=== PATIENT | female | born 1945 | race Caucasian/White ===

== ENCOUNTER 2024-01-24 04:06 | Day surgery (SDC) | payer OTHER ==
[2024-01-20 11:25] VITALS: BMI 32.5
[2024-01-24 11:29] LABS: INR 0.94 (0.83-1.09); PROTHROMBIN TIME (PATIENT) 10.8 SEC (9.7-13.0)
[2024-01-24] MEDS: ceFAZolin SODIUM 1 GM VIAL IVPB ONE (12:47)
[2024-01-24] MEDS ORDERED: HEPARIN NA (PORCINE) 5,000 UNITS/ML 1ML VIAL ONE (13:11)
[2024-01-24] MEDS ORDERED: BUPIVACAINE HCL/PF 0.25% (2.5MG/ML) 10 ML VIAL ONE (13:11)
[2024-01-24] MEDS ORDERED: PROPOFOL 20 ML ONE (14:30)
[2024-01-24] MEDS ORDERED: LIDOCAINE HCL/PF 2% SDV 5ML VIAL ONE (14:30)
[2024-01-24] MEDS ORDERED: SUCCINYLCHOLINE CHLORIDE 200 MG/10 ML SYRINGE ONE (14:30)
[2024-01-24] MEDS ORDERED: MIDAZOLAM HCL 2 MG/2 ML SINGLE DOSE VIAL ONE (14:31)
[2024-01-24] MEDS ORDERED: ROCURONIUM BROMIDE 50 MG/5 ML SYRINGE ONE (14:31)
[2024-01-24] MEDS ORDERED: DEXAMETHASONE SOD PHOSPHATE 4 MG/1 ML VIAL ONE (14:57)
[2024-01-24] MEDS ORDERED: ceFAZolin SODIUM 1 GM VIAL ONE (14:57)
[2024-01-24] MEDS: BUPIVACAINE HCL/PF 0.25% (2.5MG/ML) 10 ML VIAL IJ ONE ×2 (15:11)
[2024-01-24] MEDS ORDERED: cefOXitin SODIUM 2 GM VIAL (RESTRICTED TO ID) IVPB ONE (15:12)
[2024-01-24] MEDS: cefOXitin SODIUM 1 GM VIAL (RESTRICTED TO ID) IVPB ONE (15:13)
[2024-01-24] MEDS ORDERED: KETOROLAC TROMETHAMINE 30 MG/1 ML VIAL ONE (15:40)
[2024-01-24] MEDS ORDERED: ONDANSETRON 4 MG/2 ML VIAL ONE (15:40)
[2024-01-24] MEDS ORDERED: NEOSTIGMINE METHYLSULFATE 0.5 MG/1 ML - 10 ML MDV ONE (15:45)
[2024-01-24] MEDS ORDERED: ONDANSETRON 4 MG/2 ML VIAL IVPUSH PRN (16:13)
[2024-01-24] MEDS ORDERED: PROMETHAZINE HCL 25 MG/1 ML VIAL IVPB PRN (16:13)
[2024-01-24] MEDS ORDERED: LACTATED RINGERS SOLUTION 1,000 ML IV SCH (16:15)
[2024-01-24] MEDS: ACETAMINOPHEN 1000 MG/100 ML BAG IVPB ONE (16:54)
[2024-01-24] MEDS: ACETAMINOPHEN INJECTION 100 ML IVPB ONE (17:01)
[2024-01-24 17:11] VITALS: RESP 18
[2024-01-24] MEDS ORDERED: oxyCODONE HCL 5 MG TABLET ONE (18:20)
[2024-01-24] MEDS: oxyCODONE HCL 5 MG TABLET PO ONE (18:24)
[2024-01-24 18:50] VITALS: BP 128/51; PULSE 82; TEMP 97.7
== END 2024-01-24 19:10 | disposition home or self-care (01) ==
LOC: JASU-SURG 04:06
PROVIDERS: ATTEND Surgery
PROC: 0FT44ZZ Resection of Gallbladder, Percutaneous Endoscopic Approach (ICD-10-PCS; principal; 2024-01-24 13:30)
DX: K81.1 Chronic cholecystitis (principal)
CPT/HCPCS: 36415; 85610; 86850; 86900; 86901; 88304-TC; 94760; J0131; J1644